=== PATIENT | female | born 1995 | race Caucasian/White ===

== ENCOUNTER 2017-08-25 22:56 | Emergency (ER) | payer SELFPAY ==
--- NOTE | 2017-08-25 23:17 | ED Physician Chart ---
ED Chief Complaint/HPI - Patient Information Date Seen:: 08/25/17 Time Seen:: 23:13 Chief Complaint:: Itchy rashes History of Present Illness:: 22 yo female was diagnosed with scabies 1 month ago and was treated with permethrin cream. The rashes became better. Recently for 1 week, she again developed itchy rashes on bilateral lower extremities, torso and bilateral upper extremities. Allergies:: Allergies Allergy/AdvReac Type Severity Reaction Status Date / Time No Known Allergies Allergy Verified 08/25/17 23:10 ED Past Medical History - Past Medical History Past Medical History: No significant medical hx Surgical History: other (left knee surgery) Psychiatricy History: Other (PTSD) ED Assessment - Assessment General Assessment: Scabies
== END 2017-08-25 23:30 | disposition home or self-care (01) ==
LOC: ER 22:56
DX: B86 Scabies (principal)
CPT/HCPCS: Z7502

== ENCOUNTER 2018-06-10 19:51 | Emergency (ER) | payer MEDICAID ==
--- NOTE | 2018-06-10 20:52 | ED Physician Chart ---
ED Chief Complaint/HPI - Patient Information Date Seen:: 06/10/18 Time Seen:: 20:47 Chief Complaint:: Vomiting History of Present Illness:: 23 yo female had cough and chills yesterday. Patient felt nausea, vomited 3 times with food content 4pm, 5pm, 6:30pm. Patient had no appetite. Patient denied abdominal pain. Patient had implant for control for 1.5 years. Allergies:: Allergies Allergy/AdvReac Type Severity Reaction Status Date / Time No Known Allergies Allergy Verified 06/10/18 20:18 Vitals:: Vital Signs - 8 hr 06/10/18 20:00 Temp 98.1 F HR 79 RR 18 BP 98/48 O2 Sat % 98 ED Review of Systems - Review of Systems General/Constitutional: No fever, Chills Skin: No rash Head: No headache Eyes: No pain ENT: Sore throat Neck: No neck pain Cardio Vascular: No chest pain Pulmonary: No SOB, Cough, Sputum GI: Nausea, Vomiting G/U: No dysuria Musculoskeletal: Bone or joint pain Neurological: No focal symptoms ED Past Medical History - Past Medical History Past Medical History: No significant medical hx Social History: Non Smoker, Alcohol, Illicit Drug Use (marijuana) Surgical History: other (left knee surgery) Family Medical History - Family Member Aunt History Unknown: Yes Ethnicity: Living Status: Still Living Hx Family Diabetes: Yes ED Physical Exam - Physical Examination General/Constitutional: Awake, Well-developed, well-nourished, Alert Head: Atraumatic Eyes: PERRL Skin: No ecchymosis ENMT: Nasal exam nl Neck: No nuchal rigidity Respiratory: Clear to Auscultation, No Wheeze/Rhonchi/Rales Cardio Vascular: RRR, No murmur, gallop, rubs, NL S1 S2 Other GI comments:: RLQ tenderness Extremities: normal strength in all extremities Neuro/Psych: No focal deficits ED Labs/Radiology/EKG Results - Lab Results Results: Laboratory Last Values WBC 9.3 Th/cmm (4.8-10.8) 06/10/18 21:15 RBC 4.43 Mil/cmm (3.80-5.10) 06/10/18 21:15 Hgb 13.8 gm/dL (12-16) 06/10/18 21:15 Hct 41.1 % (41.0-60) 06/10/18 21:15 MCV 92.9 fl (81-100) 06/10/18 21:15 MCH 31.3 pg (27.0-31.0) H 06/10/18 21:15 MCHC Differential 33.6 pg (28.0-36.0) 06/10/18 21:15 RDW 12.7 % (11.5-20.0) 06/10/18 21:15 Plt Count 149 Th/cmm (150-400) L 06/10/18 21:15 MPV 10.3 fl 06/10/18 21:15 Neutrophils % 74.0 % (40.0-80.0) 06/10/18 21:15 Lymphocytes % 17.8 % (20.0-50.0) L 06/10/18 21:15 Monocytes % 6.8 % (2.0-10.0) 06/10/18 21:15 Eosinophils % 1.2 % (0.0-5.0) 06/10/18 21:15 Basophils % 0.2 % (0.0-2.0) 06/10/18 21:15 PT 10.6 SECONDS (9.5-11.5) 06/10/18 21:15 INR 1.02 (0.5-1.4) 06/10/18 21:15 PTT (Actin FS) 27.3 SECONDS (26.0-38.0) 06/10/18 21:15 Sodium 134 mEq/L (136-145) L 06/10/18 21:15 Potassium 4.1 mEq/L (3.5-5.1) 06/10/18 21:15 Chloride 103 mEq/L (98-107) 06/10/18 21:15 Carbon Dioxide 23.7 mEq/L (21.0-31.0) 06/10/18 21:15 Anion Gap 11.4 (7.0-16.0) 06/10/18 21:15 BUN 12 mg/dL (7-25) 06/10/18 21:15 Creatinine 0.6 mg/dL (0.6-1.2) 06/10/18 21:15 Est GFR ( Amer) > 60.0 ml/min (>90) 06/10/18 21:15 Est GFR (Non-Af Amer) > 60.0 ml/min 06/10/18 21:15 BUN/Creatinine Ratio 20.0 06/10/18 21:15 Glucose 105 mg/dL (70-105) 06/10/18 21:15 Calcium 9.1 mg/dL (8.6-10.3) 06/10/18 21:15 Total Bilirubin 0.2 mg/dL (0.3-1.0) L 06/10/18 21:15 AST 11 U/L (13-39) L 06/10/18 21:15 ALT 9 U/L (7-52) 06/10/18 21:15 Alkaline Phosphatase 59 U/L (34-104) 06/10/18 21:15 Total Protein 6.5 gm/dL (6.0-8.3) 06/10/18 21:15 Albumin 4.1 gm/dL (3.7-5.3) 06/10/18 21:15 Globulin 2.4 gm/dL 06/10/18 21:15 Albumin/Globulin Ratio 1.7 (1.0-1.8) 06/10/18 21:15 Lipase 21 U/L (11-82) 06/10/18 21:15 Urine Source RANDOM 06/10/18 20:20 Urine Color YELLOW 06/10/18 20:20 Urine Clarity CLEAR (CLEAR) 06/10/18 20:20 Urine pH 8.5 (4.6 - 8.0) 06/10/18 20:20 Ur Specific [place] 1.020 (1.005-1.030) 06/10/18 20:20 Urine Protein TRACE mg/dL (NEGATIVE) 06/10/18 20:20 Urine Glucose (UA) NEGATIVE mg/dL (NEGATIVE) 06/10/18 20:20 Urine Ketones NEGATIVE mg/dL (NEGATIVE) 06/10/18 20:20 Urine Blood NEGATIVE (NEGATIVE) 06/10/18 20:20 Urine Nitrate NEGATIVE (NEGATIVE) 06/10/18 20:20 Urine Bilirubin NEGATIVE (NEGATIVE) 06/10/18 20:20 Urine Urobilinogen 0.2 E.U./dL (0.2 - 1.0) 06/10/18 20:20 Ur Leukocyte Esterase TRACE (NEGATIVE) H 06/10/18 20:20 Urine RBC 0-2 /hpf (0-5) 06/10/18 20:20 Urine WBC 6-10 /hpf (0-5) H 06/10/18 20:20 Ur Epithelial Cells MANY /lpf (FEW) 06/10/18 20:20 Urine Bacteria MODERATE /hpf (NONE SEEN) H 06/10/18 20:20 POC Ur Test Negative 06/10/18 21:03 ED Assessment - Assessment General Assessment: Urinary tract infection Gastroenteritis Assessment/Comments:: CBC, CMP, UA Bactrim DS po x 1 D/c home Bactrim DS Bid x 3 days Patient may return to work in 2 days F/u PCP or return to ER if symptoms worsen ED Septic Shock - . Is Septic Shock (SBP<90, OR Lactate>4 mmol\L) present?: No - <6hrs of presentation: Vital Signs: Vital Signs - 8 hr 06/10/18 20:00 Temp 98.1 F HR 79 RR 18 BP 98/48 O2 Sat % 98 ED Reassessment (Disposition) - Reassessment Reassessment Condition:: Improved - Patient Disposition Discharge/Transfer:: Home
[2018-06-10 21:24] LABS: % BASOPHILS 0.2 % (0.0-2.0); % EOSINOPHILS 1.2 % (0.0-5.0); % LYMPHOCYTES 17.8 % (20.0-50.0); % MONOCYTES 6.8 % (2.0-10.0); EOSINOPHILE ABSOLUTE 0.1 Th/cmm (0.1-0.4); HEMATOCRIT 41.1 % (41.0-60); HEMOGLOBIN 13.8 gm/dL (12-16); LYMPHOCYTE ABSOLUTE 1.7 Th/cmm (1.5-3.0); MEAN CELL VOLUME 92.9 fl (81-100); MEAN CORPUSCULAR HEMOGLOBIN 31.3 pg (27.0-31.0); MEAN CORPUSCULAR HGB CONC 33.6 pg (28.0-36.0); MEAN PLATELET VOLUME 10.3 fl; MONOCYTE ABSOLUTE 0.6 Th/cmm (0.3-1.0); NEUTROPHILE ABSOLUTE 6.9 Th/cmm (1.8-8.0); PLATELET COUNT 149 Th/cmm (150-400); RED BLOOD COUNT 4.43 Mil/cmm (3.80-5.10); RED CELL DISTRIBUTION WIDTH 12.7 % (11.5-20.0); WHITE BLOOD COUNT 9.3 Th/cmm (4.8-10.8)
[2018-06-10 21:41] LABS: ALB/GLOB RATIO 1.7 (1.0-1.8); ALBUMIN 4.1 gm/dL (3.7-5.3); ALKALINE PHOSPHATASE 59 U/L (34-104); ANION GAP 11.4 (7.0-16.0); BILIRUBIN,TOTAL 0.2 mg/dL (0.3-1.0); BUN - UREA NITROGEN 12 mg/dL (7-25); CALCIUM SERUM 9.1 mg/dL (8.6-10.3); CARBON DIOXIDE 23.7 mEq/L (21.0-31.0); CHLORIDE 103 mEq/L (98-107); CREATININE - SERUM 0.6 mg/dL (0.6-1.2); GFR AFRICAN-AMERICAN > 60.0 ml/min (>90); GFR NON AFRICAN-AMERICAN > 60.0 ml/min; GLUCOSE 105 mg/dL (70-105); LIPASE 21 U/L (11-82); POTASSIUM SERUM 4.1 mEq/L (3.5-5.1); SGOT 11 U/L (13-39); SGPT/ALT 9 U/L (7-52); SODIUM SERUM 134 mEq/L (136-145); TOTAL PROTEIN,SERUM 6.5 gm/dL (6.0-8.3)
[2018-06-10 21:59] LABS: INR 1.02 (0.5-1.4); PROTHROMBIN TIME (TEST) 10.6 SECONDS (9.5-11.5)
[2018-06-10 22:06] LABS: URINE BILIRUBIN NEGATIVE (NEGATIVE); URINE BLOOD NEGATIVE (NEGATIVE); URINE GLUCOSE (UA) NEGATIVE (NEGATIVE); URINE KETONE NEGATIVE (NEGATIVE); URINE LEUKOCYTE ESTERASE TRACE (NEGATIVE); URINE MICROSCOPIC INDICATED? YES; URINE NITRATE NEGATIVE (NEGATIVE); URINE PH 8.5 (4.6 - 8.0); URINE PROTEIN TRACE mg/dL (NEGATIVE); URINE SOURCE RANDOM; URINE UROBILINOGEN 0.2 E.U./dL (0.2 - 1.0)
[2018-06-10 22:17] LABS: URINE CLARITY CLEAR (CLEAR); URINE COLOR YELLOW
[2018-06-10 22:19] LABS: URINE RBC 0-2 /hpf (0-5)
[2018-06-10 22:20] LABS: URINE BACTERIA MODERATE /hpf (NONE SEEN); URINE EPITHELIAL CELLS MANY /lpf (FEW)
[2018-06-10] MEDS ORDERED: Sulfamethoxazole/TMP 800/160mg Tab PO ONE (22:29)
[2018-06-10] MEDS ORDERED: Sulfamethoxazole/TMP 800/160mg Tab ONE (22:33)
== END 2018-06-10 22:40 | disposition home or self-care (01) ==
LOC: ER 19:51
DX: K52.9 Noninfective gastroenteritis and colitis, unspecified (principal); N39.0 Urinary tract infection, site not specified
CPT/HCPCS: 99284; 36415; 85025; 85610; 87086; 81001; 81025; 83690; 80053; Q0162; Z7502

== ENCOUNTER 2018-08-14 11:22 | Emergency (ER) | payer SELFPAY ==
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
[2018-08-14 12:18] LABS: EOSINOPHILE ABSOLUTE 0.1 Th/cmm (0.1-0.4); HEMOGLOBIN 12.9 gm/dL (12-16); RED BLOOD COUNT 4.09 Mil/cmm (3.80-5.10); RED CELL DISTRIBUTION WIDTH 12.1 % (11.5-20.0)
[2018-08-14 12:28] LABS: % BASOPHILS 0.7 % (0.0-2.0); % EOSINOPHILS 1.7 % (0.0-5.0); % LYMPHOCYTES 22.8 % (20.0-50.0); % MONOCYTES 7.9 % (2.0-10.0); % NEUTROPHILS 66.9 % (40.0-80.0); HEMATOCRIT 37.7 % (41.0-60); LYMPHOCYTE ABSOLUTE 1.5 Th/cmm (1.5-3.0); MEAN CELL VOLUME 92.1 fl (81-100); MEAN CORPUSCULAR HEMOGLOBIN 31.4 pg (27.0-31.0); MEAN CORPUSCULAR HGB CONC 34.1 pg (28.0-36.0); MEAN PLATELET VOLUME 12.8 fl; MONOCYTE ABSOLUTE 0.5 Th/cmm (0.3-1.0); NEUTROPHILE ABSOLUTE 4.4 Th/cmm (1.8-8.0); PLATELET COUNT 142 Th/cmm (150-400); WHITE BLOOD COUNT 6.5 Th/cmm (4.8-10.8)
[2018-08-14 12:34] LABS: ANION GAP 9.5 (7.0-16.0); BUN - UREA NITROGEN 13 mg/dL (7-25); CALCIUM SERUM 9.4 mg/dL (8.6-10.3); CARBON DIOXIDE 26.1 mEq/L (21.0-31.0); CHLORIDE 104 mEq/L (98-107); CREATININE - SERUM 0.6 mg/dL (0.6-1.2); GFR AFRICAN-AMERICAN > 60.0 ml/min (>90); GFR NON AFRICAN-AMERICAN > 60.0 ml/min; GLUCOSE 94 mg/dL (70-105); MAGNESIUM 1.8 mg/dL (1.9-2.7); POTASSIUM SERUM 3.6 mEq/L (3.5-5.1); SODIUM SERUM 136 mEq/L (136-145)
--- NOTE | 2018-08-14 12:39 | Diagnostic Imaging Report ---
CHEST X-RAY: AP view INDICATION: pain COMPARISON: None FINDINGS: There is no focal consolidation or pleural effusions The heart is normal in size. The osseous structures demonstrate no acute abnormalities. IMPRESSION: No focal consolidation identified.
== END 2018-08-14 14:00 | disposition home or self-care (01) ==
LOC: ER 11:22
DX: R07.2 Precordial pain (principal); F17.200 Nicotine dependence, unspecified, uncomplicated; Z98.890 Other specified postprocedural states
CPT/HCPCS: 99284; 96372; 93005 ×2; 71045; 84484; 36415; 85025; 85652; 81025; 83735; 80048; J1885; Z7502

== ENCOUNTER 2018-10-01 18:57 | Emergency (ER) | payer SELFPAY ==
--- NOTE | 2018-10-09 12:25 | ER Physician Documentation ---
DATE OF SERVICE: 10/01/2018 HISTORY OF PRESENT ILLNESS: This is a 23-year-old female patient who presents with onset x 1 day of nausea, vomiting and diarrhea x 6. The patient is eating a regular diet and is urinating well. The patient's last urine about an hour prior to admission. The patient denies trauma. The patient denies fever, chills, headaches, neck pain, chest pain, shortness of breath. Her abdominal pain is intermittent and is a crampy type nature, which she has had for 2 days. It is in the periumbilical region. This abdominal pain did resolve upon ER arrival. PAST MEDICAL HISTORY: As per nurse's notes. MEDICATIONS: Per nurse's notes. ALLERGIES: Per nurse's notes. FAMILY HISTORY: Per nurses' notes. REVIEW OF SYSTEMS: Otherwise, noncontributory. PHYSICAL EXAMINATION: GENERAL: Found the patient to be in no acute distress, alert and oriented x 3. VITAL SIGNS: Afebrile, vital signs stable. HEENT: Negative. NECK: Supple. No meningeal signs. No cervical tenderness. CARDIOVASCULAR: Regular rate and rhythm. LUNGS: Clear with good breath sounds bilaterally. ABDOMEN: Soft, nontender, normal active bowel sounds. No pulsatile masses. There was no bleeding. Stool negative for occult blood. The patient denies melena, hematochezia or hematemesis. SKIN: Shows good turgor with moist mucous membranes. PELVIC: Deferred by the patient. EXTREMITIES: No edema, clubbing or cyanosis. NEUROLOGIC: No focal signs. SKIN: Shows good turgor with moist mucous membranes. HOSPITAL COURSE: The patient tolerated oral fluids well. The patient was comfortable upon discharge. Note, the patient was discharged with a prescription for Zofran 4 mg by mouth three times a day p.r.n. nausea or vomiting. The patient is to do a clear liquid diet and encourage fluids, avoid regular food until nausea, vomiting and diarrhea resolves. The patient is to be referred to a social service director as soon as possible. Otherwise, follow up with her primary physician on Saturday or as needed. We will refer to an supervisor soldering as soon as possible. The patient is to return to the Emergency Room as needed if the existing signs and symptoms should reoccur and/or get worse and/or any other new signs and symptoms should occur. Aftercare instructions given for all the above diagnosis. Otherwise, the patient is to return to the Emergency Room as needed, if concern. FINAL DIAGNOSES: Abdominal pain, resolved. Abdominal pain, nausea, vomiting, diarrhea, acute gastroenteritis, viral syndrome, gastroenteritis and gastritis. JOB# [id number]
== END 2018-10-01 19:35 | disposition home or self-care (01) ==
LOC: ER 18:57
DX: K52.9 Noninfective gastroenteritis and colitis, unspecified (principal); B34.9 Viral infection, unspecified; K29.70 Gastritis, unspecified, without bleeding
CPT/HCPCS: Z7502